=== PATIENT | male | born 1965 | race Two or more races ===

== ENCOUNTER 2020-07-06 11:37 | Emergency (ER) | payer MEDICAID ==
[~2020-07-06] VITALS: Ht 180.3 cm; Wt 86.2 kg
[2020-07-06 11:40] VITALS: BP 141/94
[2020-07-06] MEDS ORDERED: TETANUS-DIPTH-ACEL PERTUSSIS 0.5ML SYR Tdap IM ONE (13:00)
[2020-07-06] MEDS ORDERED: IBUPROFEN 800 MG TAB PO ONE (13:15)
[2020-07-06] MEDS ORDERED: cefTRIAXone SOD 1,000 MG VL IM ONE (14:30)
== END 2020-07-06 14:44 | disposition home or self-care (01) ==
LOC: ER 11:37
DX: S62.631A Displaced fracture of distal phalanx of left index finger, initial encounter for closed fracture (principal); S61.211A Laceration without foreign body of left index finger without damage to nail, initial encounter; W26.8XXA Contact with other sharp object(s), not elsewhere classified, initial encounter; Y93.89 Activity, other specified; Y92.89 Other specified places as the place of occurrence of the external cause; Y99.8 Other external cause status
CPT/HCPCS: 12002; 73140; 90471; 90715; 96372; 99284; J0696; J2001